=== PATIENT | male | born 1960 | race Caucasian/White ===

== ENCOUNTER → 2018-03-13 | Outpatient (CLI) | payer OTHER ==
[~2018-03-13] MED LIST: CALC500C70 PO; DICY20TA10 PO; LISI-729 PO; OPTIRAY 320 IV PRN; SIMV10TA2 PO
--- NOTE | 2018-03-13 13:49 | DIAGNOSTIC IMAGING REPORT ---
CT ANGIOGRAM OF THE CHEST CLINICAL HISTORY: Atypical chest pain and shortness of breath COMPARISON STUDY: No previous studies for comparison. TECHNIQUE: Following the IV administration of 93 mL of Optiray-320, CT angiogram of the thorax was performed from the thoracic inlet to the lung bases utilizing the pulmonary embolus protocol. Images are reviewed in the axial, sagittal, and coronal planes. IV contrast was administered without complication. MIP imaging was performed. A dose lowering technique was utilized adhering to the principles of ALARA. CT DOSE: 534.65 mGycm FINDINGS: No pathologically enlarged axillary mediastinal or hilar lymph nodes were visualized. There is mild dilatation of the ascending thoracic aorta which measures 44 mm. There were no pulmonary artery filling defects to indicate acute pulmonary embolism. No pleural effusions are visualized. There is respiratory motion artifact. There are linear atelectatic changes within the right lower lobe. There is elevation of the right hemidiaphragm. There is hepatic steatosis. IMPRESSION: 1. No evidence of acute pulmonary embolism 2. Elevation of the right hemidiaphragm 3. Hepatic steatosis 4. Mild aneurysmal dilatation of the ascending thoracic aorta which measures 44 mm. Electronically signed by: Néstor Moreau M.D. 03/13/2018 1:48 PM Dictated Date/Time: 03/13/2018 1:43 PM
== END | disposition home or self-care (01) ==
LOC: C.CTS 13:25
PROVIDERS: ATTEND Physician Assistant
DX: Q79.1 Other congenital malformations of diaphragm (principal); I71.2 Thoracic aortic aneurysm, without rupture

== ENCOUNTER → 2018-03-20 | Outpatient (CLI) | payer OTHER ==
[~2018-03-20] MED LIST changes: -OPTIRAY 320 IV PRN
--- NOTE | 2018-03-20 09:13 | DIAGNOSTIC IMAGING REPORT ---
(BARIUM SWALLOW) ESOPHAGUS CLINICAL HISTORY: [id number] 9 AM ARRIVE 30 MIN PRIOR NPO AFTEdysphagia COMPARISON STUDY: None FLUOROSCOPY TIME: 1.0 minutes. FINDINGS: Patient initiates swallowing function well. No evidence for aspiration. The esophagus is normal in course and caliber. There is a small hiatal hernia. There are findings of minimal gastroesophageal reflux. IMPRESSION: Small hiatal hernia. Minimal gastroesophageal reflux. The above report was generated using voice recognition software. It may contain grammatical, syntax or spelling errors. Electronically signed by: Domingo Nieves M.D. 03/20/2018 9:11 AM Dictated Date/Time: 03/20/2018 9:10 AM
--- NOTE | 2018-03-20 09:14 | DIAGNOSTIC IMAGING REPORT ---
Study: Sniff test HISTORY: Dyspnea FINDINGS: Examination is performed under fluoroscopic observation. Motion of the left hemidiaphragm is normal. There is no significant right diaphragmatic motion. IMPRESSION: 1. Markedly diminished and/or absent right diaphragmatic motion suggesting diaphragmatic paralysis. 2. Normal left diaphragmatic motion. Electronically signed by: Domingo Nieves M.D. 03/20/2018 9:13 AM Dictated Date/Time: 03/20/2018 9:11 AM
== END | disposition home or self-care (01) ==
LOC: C.RAD 08:33
PROVIDERS: ATTEND Physician Assistant
DX: R13.10 Dysphagia, unspecified (principal); R06.02 Shortness of breath; J98.6 Disorders of diaphragm; K44.9 Diaphragmatic hernia without obstruction or gangrene